=== PATIENT | male | born 1980 | race Caucasian/White ===

== ENCOUNTER 2023-07-18 11:12 | Outpatient (CLI) | payer OTHER, SELFPAY ==
--- NOTE | 2023-07-18 11:30 | US_ITS ---
Patient: NEREYDA MAGANA Facility:?[facility] Patient ID:?[id number] Site Patient ID:?[id number]. Site :?[id number] Study:?US-Testicle SCROTUM-07/18/2023 12:06:31 PM Ordering Physician:PASCALE WANG Final Report: INDICATION: Right testicle pain. COMPARISON: None. TECHNIQUE: Coronado scale imaging was performed of the scrotum. Color Doppler and spectral Doppler analysis was performed of the testes. FINDINGS: Testes: The right testis measures 4.1 x 2.5 x 2.8 cm and the left testis measures 4.0 x 2.2 x 2.7 cm. The testes demonstrate normal arterial and venous blood flow on color Doppler and spectral Doppler analysis. The testes have uniform echogenicity without evidence of a suspicious mass or area of inflammation. Epididymis: The epididymis is normal in appearance bilaterally. No hypervascularity. 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 Contralateral left hemiscrotal vessels are patent. Small right hydrocele. No significant varicocele. IMPRESSION: 1. 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 2. Small right hydrocele. 3. No evidence of torsion. Dictated by Nathaly Charles MD @ 07/18/2023 7:48:54 PM Signed by:?Nathaly Charles MD @07/18/2023 7:48:54 PM (Electronic Signature)
== END 2023-07-18 11:13 | disposition home or self-care (01) ==
PROVIDERS: PCP Family Medicine; Visit Provider Registered Nurse
DX: N50.811 Right testicular pain (principal); N43.3 Hydrocele, unspecified
CPT/HCPCS: 76870; 93976

== ENCOUNTER 2024-06-04 17:32 | Inpatient (IN) | payer OTHER, SELFPAY ==
--- OUTSIDE RECORDS SUMMARY | 2024-06-04 17:33 | XMS_ITS | Clinical Summary ---
Author Organization [employer] [facility] Address [place], [place] [address] Care Team Providers Care Linux Security Administrator Name Role Phone Paula Gomez MD Primary Care Provider Allergies No known active allergies Medications ibuprofen (ADVIL; MOTRIN) 600 mg tablet Take 600 mg by mouth three times daily. Maximum of 3200 mg in 24 hours. 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 FH: heart disease 07/14/2016 No active medical problems 04/16/2011 Immunizations Name Administration Dates Next Due COVID-19 vaccine (Moderna 100mcg/0.5mL) ROBBIE INGRAM 08/26/2020,07/31/2020 MMR 09/07/1993 Td (Age >=7 Years) 09/26/1996 Tdap 07/25/2023,04/16/2011 Family History Medical History Relation Name Comments Hyperlipidemia Brother 1 PJ Hypertension Brother 1 PJ Heart Disease Brother 2 Kev at ag e 24 or hypertrophic cardiomyopathy Valvular heart disease Brother 3 Emery No Known Problems Brother 4 Sascha Cancer Father lung of tan ng cancer at 59; smoker Heart Disease Father Lung cancer Father Stroke Father Transient ischemic attack Father Deep vein thrombosis Maternal Uncle Heart Disease Maternal Uncle Premature CHD (under age 60) Maternal Uncle Cancer-breast Mother Dementia Mother Diabetes Mother Hyperlipidemia Mother Hypertension Mother Postmenopausal breast cancer Mother Premature CHD (under age 60) Mother Cancer-colon Paternal Grandmother Hyperlipidemia Sister 1 Dagmar Hypertension Sister 1 Dagmar Coronary artery disease Sister 2 Rui Relation Name Status Comments Brother 1 PJ Alive Brother 2 Kev Brother 3 Emery Alive Brother 4 Sascha Alive Daughter 1 Alive Daughter 2 Alive Father Maternal Uncle Mother Paternal Grandmother Sister 1 Dagmar Alive Sister 2 [place] Alive Social History Tobacco Use Types Packs/Day Years Used Date Smoking Tobacco: Never Smokeless Tobacco: Never Tobacco Cessation:Counseling Given: Yes Alcohol Use Standard Drinks/Week Comments No 0 (1 standard drink = 0.6 oz pur e alcohol) [facility] Utilities Answer Date Recorded Do you have trouble paying f or utilities (for example, heat, electricity, water, phone)? Yes 07/25/2023 PHQ-2 Answer Date Recorded PHQ-2 TOTAL SCORE 0 07/25/2023 Social Connections Answer Date Recorded Do you often feel lonely or isolated from those around you? 0 07/25/2023 Financial Resource Strain Answer Date R ecorded Difficulty of Paying Living Expenses 3 07/25/2023 Difficulty of Paying Living Expenses Not on file 07/25/2023 Food Insecurity Answer Date Recorded Do you worry your food will run out before you are able to buy more? 1 07/25/2023 Transportation Needs Answer Date Record ed Does lack of transportation keep you from medica l appointments? 1 07/25/2023 Does lack of transportation keep you from work, meetings or getting things that you need? 1 07/25/2023 Housing Stability Answer Date Recorded What is your housing situation today? 1 07/25/2023 Sex and Gender Information Value Date Recorded Sex Assigned at Not on file Legal Sex Male 5:21 AM DRUG SAFETY DATA MANAGEMENT SPECIALIST Gender Identity Not on file Sexual Orientation Not on file Obstetrics History Last Filed Vital Signs Vital Sign Reading Time Taken Comments Blood Pressure 124/90 10/10/2023 7:58 AM CDT Pulse 61 10/10/2023 7:58 AM CDT Temperature 36.4 C (97.5 F) 08/10/2019 10:30 AM CDT Respiratory Rate 16 04/27/2017 9:41 PM DRUG SAFETY DATA MANAGEMENT SPECIALIST Oxygen Saturation 100% 10/10/2023 7:58 AM CDT Inhaled Oxygen Concentration - - Weight 89.6 kg (197 lb 8 oz) 10/10/2023 7:58 AM CDT Height 180.3 cm (5' 11) 07/25/2023 9:05 AM DRUG SAFETY DATA MANAGEMENT SPECIALIST Body Mass Index 27.55 07/25/2023 9:05 AM DRUG SAFETY DATA MANAGEMENT SPECIALIST Plan of Treatment Upcoming Encounters Date Type Department Care Team (Late st Contact Info) Description 06/06/2024 8:20 AM DRUG SAFETY DATA MANAGEMENT SPECIALIST Office Visit [facility] [address] [place] [address] Kali Phillips MD [address] [place] [address] Health Maintenance Due Date Last Done Comments COVID-19 vaccine series ( season) 2024 08/26/2020, 07/31/2020 Influenza for age 9-49 01/29/2024 BMI (ht and wt on same day) for age 18+ 07/25/2024 07/25/2023, 08/10/2019, 05/06/2017, Additional history exists Depression screening for age 12+ 07/25/2024 07/25/2023, 08/10/2019, 07/14/2016 Lipids for age 35-44 07/25/2028 07/25/2023, 07/14/2016, 04/16/2011 Tetanus booster 07/25/2033 07/25/2023, 03/30, 09/26/1996 HIV for age 15-65 Completed 07/25/2023 Hepatitis C screening for age 18-79 Completed 07/25/2023 Tdap Completed 07/25/2023, 04/16/2011 Pneumococcal series for age 6-49 Aged Out No longer eligible based on patient's age to complete this topic Procedures Procedure Name Priority Date/Time Associated Diagnosis Comments ANTI HIV 1/2 Routine 07/25/2023 10:01 AM DRUG SAFETY DATA MANAGEMENT SPECIALIST Screening for HIV (human immunodeficiency virus) ANTI HCV Routine 07/25/2023 10:01 AM DRUG SAFETY DATA MANAGEMENT SPECIALIST Need for hepatitis C screening test LIPID PANEL W REFLEX MEASURED LDL Routine 07/25/2023 10:01 AM DRUG SAFETY DATA MANAGEMENT SPECIALIST Lipid screening from Last 3 Months or Most Recently Relevant to Health Maintenance Results * (ABNORMAL) LIPID PANEL W REFLEX MEASURED LDL (07/25/2023 10:01 AM DRUG SAFETY DATA MANAGEMENT SPECIALIST) CHOLESTEROL,TOTAL 187 100 - 199 mg/dL 07/25/2023 4:16 PM DRUG SAFETY DATA MANAGEMENT SPECIALIST [facility] Comment: Cholesterol, Total Reference Ranges Desirable <200 mg/dL Borderline 200-239 mg/dL High >=240 mg/dL TRIGLYCERIDES 156(H) <150 mg/dL 07/25/2023 4:16 PM DRUG SAFETY DATA MANAGEMENT SPECIALIST [facility] HDL CHOLESTEROL 44 >40 mg/dL 4:16 PM [facility] NON-HDL CHOLESTEROL 143 <145 mg/dl 07/25/2023 4:16 PM DRUG SAFETY DATA MANAGEMENT SPECIALIST [facility] CHOL/HDL RATIO 4.25 <4.50 07/25/2023 4:16 PM [facility] LDL CHOLESTEROL 112 <=130 mg/dL 07/25/2023 4:16 PM [facility] VLDL CHOLESTEROL 31(H) <=30 mg/dL 07/25/2023 4:16 PM [facility] PROVIDER ORDERED STATUS RANDOM 07/25/2023 4:16 PM [facility] Blood BLOOD SPECIMEN / Unknown Venipuncture / Unknown 07/25/2023 10:01 AM DRUG SAFETY DATA MANAGEMENT SPECIALIST 07/25/2023 10:02 AM [facility] Paula Gomez MD CHEMISTRY Final R esult [facility] [address] [place] [address], * ANTI HCV (07/25/2023 10:01 AM DRUG SAFETY DATA MANAGEMENT SPECIALIST) HEPATITIS C ANTIBODY Non-Reacti ve Non-React julia 07/25/2023 3:13 PM DRUG SAFETY DATA MANAGEMENT SPECIALIST [facility] Comment:Please note, per www .CDC.gov: If a patient is known to be at high risk of HCV infection, or is symptomatic, and the physician's suspicion of HCV infection is high, HCV RNA testing is often employed and is of diagnostic value, even after an initial negative anti-HCV test result. Blood BLOOD SPECIMEN / Unknown Venipuncture / Unknown 07/25/2023 10:01 AM DRUG SAFETY DATA MANAGEMENT SPECIALIST 07/25/2023 10:02 AM DRUG SAFETY DATA MANAGEMENT SPECIALIST Paula Gomez MD SEND OUTS Final R esult Performing Organization Address City/[facility]/ZIP Co de Phone Number [facility] [address] [place] [id number], [place] * ANTI HIV 1/2 [15824.0] (07/25/2023 10:01 AM DRUG SAFETY DATA MANAGEMENT SPECIALIST) HIV-1/HIV-2 SCREEN Non-Reacti ve Non-Reacti ve 07/25/2023 3:14 PM DRUG SAFETY DATA MANAGEMENT SPECIALIST [facility] Comment:HIV-1 p24 and HIV-1/ HIV-2 Ab Not Detected. Blood BLOOD SPECIMEN / Unknown Venipuncture / Unknown 07/25/2023 10:01 AM DRUG SAFETY DATA MANAGEMENT SPECIALIST 07/25/2023 10:02 AM DRUG SAFETY DATA MANAGEMENT SPECIALIST Paula Gomez MD SEND OUTS Final R esult Performing Organization Address [facility] Co de Phone Number [facility] [address] [place] [id number], [place] from Last 3 Months or Most Recently Relevant to Health Maintenance Insurance [place] [employer] [place] [id number] [employer] Care Teams Linux Security Administrator Relationship Specialty Start Date End Date Paula Gomez MD [address] [place] [address] PCP - General Family Practice 06/28/23
[2024-06-04 18:05] VITALS: BP 131/83; PULSE 59; RESP 18; TEMP 36.6; O2SAT 100; BMI 25.8
--- NOTE | 2024-06-04 19:29 | ED_ITS ---
HPI - General Adult General Date Seen: 06/04/24 Chief complaint: Diabetic Related Problem Stated complaint: high blood sugar Time Seen by Provider: 06/04/24 19:27 History of Present Illness HPI narrative: 43 yo M who has no previous diagnosis of diabetes presents to the ER today for hyperglycemia. He says he has been feeling unwell since about 10 days ago on [place]. He has had blurry vision. He tested his blood sugar on his vfbbav-wf-sgn's glucose monitor and had several high readings. Blood sugar was 592 and then 581. Patient notes that since about May 25 he has had symptoms. Symptoms have included blurry vision (blurry to the point where he cannot see the hockey puck when skating) polyuria, polydipsia, and generalized fatigue. He is not having abdominal pain. No headache. No nausea or vomiting. Appetite been good. No history of diabetes but does have a couple of cousins with diabetes. He is not sure if there type 1 or type 2. No recent fever. No cough. Related Data Home Medications ?Medication ?Instructions ?Recorded ?Confirmed No Known Home Medications 07/18/23 07/18/23 Allergies Allergy/AdvReac Type Severity Reaction Status Date / Time No Known Drug Allergies Allergy Verified 07/18/23 08:58 [facility] Social History Smoking Status: Never smoker Do you use any of these nicotine containing products: None Non-prescribed substance use: denies use Exam Narrative: Exam Narrative: Constitutional: Appears well-developed and well-nourished. Alert. Conversant. Non toxic. HENT: Head: Atraumatic. Nose: Nose normal. Mouth/Throat: Oral mucosa is clear and moist. no trismus. Pharynx normal. Tonsils symmetric. No tonsillar enlargement, erythema, or exudate. Eyes: Conjunctivae normal. EOM normal. Pupils equal, round, and reactive to light. No scleral icterus. Neck: Normal range of motion. Neck supple. No tracheal deviation present. Cardiovascular: Normal rate, regular rhythm. No gallop. No friction rub. No murmur heard. Symmetric radial artery pulses Pulmonary/Chest: Effort normal. No stridor. No respiratory distress. No wheezes. No rales. No rhonchi . No tenderness. Abdominal: Soft. Bowel sounds normal. No distension. No mass. No tenderness. No rebound. No guarding. Musculoskeletal: RUE: Normal range of motion. No tenderness. No deformity LUE: Normal range of motion. No tenderness. No deformity RLE: Normal range of motion. No edema. No tenderness. No deformity LLE: Normal range of motion. No edema. No tenderness. No deformity Neurological: Alert and oriented to person, place, and time. Normal strength. CN II-VII intact. No sensory deficit. GCS eye subscore is 4. GCS verbal subscore is 5. GCS motor subscore is 6. Normal coordination Skin: Skin is warm and dry. No rash noted. No pallor. Normal capillary refill. Psychiatric: Normal mood. Normal affect. Const: Vital Signs, click to edit/add: Vital Signs - 24 hr 06/04/24 18:05 06/04/24 23:30 Temperature 97.9 F Pulse Rate [Pulse Oximeter] 59 L 76 Respiratory Rate 18 18 Blood Pressure [Ri ght Upper Arm] 131/83 117/77 Pulse Oximetry 100 98 Oxygen Delivery Me thod Room Air Room Air Course Vital Signs Vital signs: Initial Vital Signs Temperature 97.9 F 06/04/24 18:05 Temperature Source Temporal Artery Scan 06/04/24 18:05 Pulse Rate 59 L 06/04/24 18:05 Respiratory Rate 18 06/04/24 18:05 Blood Pressure 131/83 06/04/24 18:05 Blood Pressure Mean 99 06/04/24 18:05 Blood Pressure Position Sitting 06/04/24 18:05 Pulse Oximetry 100 06/04/24 18:05 Oxygen Delivery Method Room Air 06/04/24 18:05 Vital Signs Temperature 97.9 F 06/04/24 18:05 Pulse Rate 59 L 06/04/24 18:05 Respiratory Rate 18 06/04/24 18:05 Blood Pressure 131/83 06/04/24 18:05 Pulse Oximetry 100 06/04/24 18:05 Oxygen Delivery Method Room Air 06/04/24 18:05 Temperature 97.9 F 06/04/24 18:05 Pulse Rate 76 06/04/24 23:30 Respiratory Rate 18 06/04/24 23:30 Blood Pressure 117/77 06/04/24 23:30 Pulse Oximetry 98 06/04/24 23:30 Oxygen Delivery Method Room Air 06/04/24 23:30 Medications Administered Medications: Discontinued Medications Generic Name Dose Route Start Last Admin Trade Name Rupinder PRN Reason Stop Dose Admin Sodium Chloride 500 mls @ 500 mls/hr 06/04/24 19:48 06/04/24 23:47 0.9 % Sodium Chloride 500 Ml IV 06/04/24 20:47 Infused .Q1H ONE Infusion Insulin Human Regular 10 unit 06/04/24 22:10 06/04/24 22:13 Insulin Regular, Human 100 Unit/Ml Vial SUBCUT 06/04/24 22:11 10 unit ONCE ONE Administration Medical Decision Making MDM Narrative Medical decision making narrative: Very pleasant 43-year-old male presenting to the ER today with symptoms of diabetes (fatigue, polyuria, polydipsia, blurry vision) and elevated glucose readings. He has no previous history of diabetes. Labs here do confirm hyperglycemia. Fortunately his pH is normal, anion gap is normal. I do not see any evidence for diabetic ketoacidosis. Potassium and magnesium are normal. After discussion with our hospitalist, will start on subcu insulin rather than insulin drip for his hyperglycemia. Patient initiated with insulin 10 units subQ here in the ER. Will need q.1 hour glucose checks overnight to make sure his blood sugar comes down gradually and responds appropriately to the insulin. Patient will be admitted for management of his new onset diabetes with hyperglycemia. At this point he is neurologically intact, calm and conversant and is agreeable with the plan. Excepted by Dr. Stapleton at 9:51 p.m.. Lab Data Labs: Lab Results 06/04/24 06/04/24 Range/Units 19:58 20:37 WBC 6.57 (4.50-11.00) K/uL RBC 5.27 (4.30-5.90) m/uL Hgb 15.4 (13.5-17.5) gm/dL Hct 41.3 (37.0-53.0) % MCV 78 L (80-100) fL MCH 29 (26-34) pg MCHC 37 H (32-36) gm/dL RDW Coeff of True 10.9 L (11.5-15.5) % Plt Count 206 (140-440) K/uL Neut % (Auto) 57.2 (42.0-72.0) % Lymph % (Auto) 33.8 (20-44) % [place] % (Auto) 6.4 (0.0-11.0) % Eos % (Auto) 2.1 (0.0-7.0) % Baso % (Auto) 0.5 (0.0-3.0) % Neut # (Auto) 3.76 (1.7-7.0) K/uL Lymph # (Auto) 2.22 (0.90-2.90) K/uL [place] # (Auto) 0.40 (0.00-0.90) K/UL Eos # (Auto) 0.14 (0.00-0.50) K/uL Baso # (Auto) 0.03 (0.00-0.30) K/uL Abs Immat Gran (auto) 0.00 (0.00-0.30) K/uL Imm/Tot Granulo (auto) 0.0 % VBG pH 7.381 (7.32-7.43) VBG pCO2 50 (40-50) mmHG VBG pO2 < 30.1 (25-47) mmHG VBG HCO3 30 H (21-28) mmol/L Sodium 129 L (135-149) mmol/L Potassium 4.1 (3.6-5.1) mmol/L Chloride 92 L (96-114) mmol/L Carbon Dioxide 27 (20-32) mmol/L Anion Gap 10 (7-15) mEq/L BUN 22 (5-24) mg/dL Creatinine 0.9 (0.5-1.5) mg/dL Estimated Creat Clear 112.72 Estimated GFR 109 ml/min Glucose 401 H* (60-115) mg/dL Calcium 9.4 (8.4-10.6) mg/dL Magnesium 2.2 (1.5-2.6) mg/dL Urine Color Yellow (Yellow) Urine Appearance Clear (Clear) Urine pH 5.5 (5.0-8.5) Ur Specific Diablo 1.010 (1.000-1.030) Urine Protein Negative (Negative) Urine Glucose (UA) 3+ A (Negative) Urine Ketones 1+ A (Negative) Urine Blood Negative (Negative) Urine Nitrite Negative (Negative) Urine Bilirubin Negative (Negative) Urine Urobilinogen 0.2 (0.2-1.0) Ur Leukocyte Esterase Negative (Negative) Urine RBC 0-2 (0-2) Urine WBC 0-2 (0-5) Ur Squamous Epith Cells None (None-Few) Urine Bacteria None (None) Discharge Plan Discharge Clinical Impression: Acute hyperglycemia, Diabetes mellitus, new onset Patient Disposition: Admitted As Observation
--- OUTSIDE RECORDS SUMMARY | 2024-06-04 19:55 | XMS_ITS | Clinical Summary ---
Author Organization [employer] [facility] [employer] [facility] Address [place], [place] [address] Care Team Providers Care Rn Cvor Name Role Phone Paula Gomez MD Primary [...] Grandmother Sister 1 Dagmar Alive Sister 2 [place] Alive Social History Tobacco Use Types Packs/Day Years Used Date Smoking Tobacco: Never Smokeless Tobacco: Never Tobacco Cessation:Counseling Given: Yes Alcohol Use Standard Drinks/Week Comments No 0 (1 standard drink = 0.6 oz pur e alcohol) [facility] Utilities Answer Date Recorded Do you have [...] on file Legal Sex Male 5:21 AM STORE CLERK CASHIER Gender Identity Not on file Sexual Orientation Not on file Obstetrics History Last Filed Vital Signs Vital Sign Reading Time Taken Comments Blood Pressure 124/90 10/10/2023 7:58 AM CDT Pulse 61 10/10/2023 7:58 AM CDT Temperature 36.4 C (97.5 F) 08/10/2019 10:30 AM CDT Respiratory Rate 16 04/27/2017 9:41 PM STORE CLERK CASHIER Oxygen Saturation 100% 10/10/2023 7:58 AM CDT Inhaled Oxygen Concentration - - Weight 89.6 kg (197 lb 8 oz) 10/10/2023 7:58 AM CDT Height 180.3 cm (5' 11) 07/25/2023 9:05 AM STORE CLERK CASHIER Body Mass Index 27.55 07/25/2023 9:05 AM STORE CLERK CASHIER Plan of Treatment Upcoming Encounters Date Type Department Care Team (Late st Contact Info) Description 06/06/2024 8:20 AM STORE CLERK CASHIER Office Visit [facility] [address] [place] [address] Kali Phillips MD [address] [place] [address] Health Maintenance Due Date Last Done Comments [...] ANTI HIV 1/2 Routine 07/25/2023 10:01 AM STORE CLERK CASHIER Screening for HIV (human immunodeficiency virus) ANTI HCV Routine 07/25/2023 10:01 AM STORE CLERK CASHIER Need for hepatitis C screening test LIPID PANEL W REFLEX MEASURED LDL Routine 07/25/2023 10:01 AM STORE CLERK CASHIER Lipid screening from Last 3 Months or Most Recently Relevant to Health Maintenance Results * (ABNORMAL) LIPID PANEL W REFLEX MEASURED LDL (07/25/2023 10:01 AM STORE CLERK CASHIER) CHOLESTEROL,TOTAL 187 100 - 199 mg/dL 07/25/2023 4:16 PM STORE CLERK CASHIER [facility] Comment: Cholesterol, Total Reference Ranges Desirable <200 mg/dL Borderline 200-239 mg/dL High >=240 mg/dL TRIGLYCERIDES 156(H) <150 mg/dL 07/25/2023 4:16 PM STORE CLERK CASHIER [facility] HDL CHOLESTEROL 44 >40 mg/dL 4:16 PM [facility] NON-HDL CHOLESTEROL 143 <145 mg/dl 07/25/2023 4:16 PM STORE CLERK CASHIER [facility] CHOL/HDL RATIO 4.25 <4.50 07/25/2023 4:16 PM [facility] LDL CHOLESTEROL 112 <=130 mg/dL 07/25/2023 4:16 PM [facility] VLDL CHOLESTEROL 31(H) <=30 mg/dL 07/25/2023 4:16 PM [facility] PROVIDER ORDERED STATUS RANDOM 07/25/2023 4:16 PM [facility] Blood BLOOD SPECIMEN / Unknown Venipuncture / Unknown 07/25/2023 10:01 AM STORE CLERK CASHIER 07/25/2023 10:02 AM [facility] Paula Gomez MD CHEMISTRY Final R esult [facility] [address] [place] [address], * ANTI HCV (07/25/2023 10:01 AM STORE CLERK CASHIER) HEPATITIS C ANTIBODY Non-Reacti ve Non-React julia 07/25/2023 3:13 PM STORE CLERK CASHIER [facility] Comment:Please note, per www .CDC.gov: If a patient is known to be at high risk of HCV infection, or is symptomatic, and the physician's suspicion of HCV infection is high, HCV RNA testing is often employed and is of diagnostic value, even after an initial negative anti-HCV test result. Blood BLOOD SPECIMEN / Unknown Venipuncture / Unknown 07/25/2023 10:01 AM STORE CLERK CASHIER 07/25/2023 10:02 AM STORE CLERK CASHIER Paula Gomez MD SEND OUTS Final R esult Performing Organization Address City/[facility]/ZIP Co de Phone Number [facility] [address] [place] [phone], [place] * ANTI HIV 1/2 [28091.0] (07/25/2023 10:01 AM STORE CLERK CASHIER) HIV-1/HIV-2 SCREEN Non-Reacti ve Non-Reacti ve 07/25/2023 3:14 PM STORE CLERK CASHIER [facility] Comment:HIV-1 p24 and HIV-1/ HIV-2 Ab Not Detected. Blood BLOOD SPECIMEN / Unknown Venipuncture / Unknown 07/25/2023 10:01 AM STORE CLERK CASHIER 07/25/2023 10:02 AM STORE CLERK CASHIER Paula Gomez MD SEND OUTS Final R esult Performing Organization Address [facility] Co de Phone Number [facility] [address] [place] [address], [place] from Last 3 Months or Most Recently Relevant to Health Maintenance Insurance [place] [employer] [place] [id number] [employer] Care Teams Rn Cvor Relationship Specialty Start Date End Date Paula Gomze MD [address] [place] [address] PCP - General Family Practice 06/28/23
[2024-06-04 20:06] LABS: HCO3 VBG 30 mmol/L (21-28); PCO2 VBG 50 mmHG (40-50); PO2 VBG < 30.1 mmHG (25-47); pH VBG 7.381 (7.32-7.43)
[2024-06-04 20:25] LABS: Chloride* 92 mmol/L (96-114); Potassium* 4.1 mmol/L (3.6-5.1); Sodium* 129 mmol/L (135-149)
[2024-06-04 20:28] LABS: Anion Gap 10 mEq/L (7-15); Carbon Dioxide* 27 mmol/L (20-32); Creatinine* 0.9 mg/dL (0.5-1.5); Est. Creatinine Clearance* 112.72; Estimated Glomerular Filt Rate 109 ml/min
[2024-06-04 20:29] LABS: Blood Urea Nitrogen* 22 mg/dL (5-24); Calcium* 9.4 mg/dL (8.4-10.6); Magnesium* 2.2 mg/dL (1.5-2.6)
[2024-06-04 20:33] LABS: Basophils Absolute Auto 0.03 K/uL (0.00-0.30); Basophils Percent Auto 0.5 % (0.0-3.0); Eosinophils Absolute Auto 0.14 K/uL (0.00-0.50); Eosinophils Percent Auto 2.1 % (0.0-7.0); Hematocrit 41.3 % (37.0-53.0); Hemoglobin* 15.4 gm/dL (13.5-17.5); Lymphocytes Absolute Auto 2.22 K/uL (0.90-2.90); Lymphocytes Percent Auto 33.8 % (20-44); Mean Corpuscular HGB Conc 37 gm/dL (32-36); Mean Corpuscular Hemoglobin 29 pg (26-34); Mean Corpuscular Volume 78 fL (80-100); Monocytes Percent Auto 6.4 % (0.0-11.0); Neutrophils Absolute Auto 3.76 K/uL (1.7-7.0); Neutrophils Percent Auto 57.2 % (42.0-72.0); Platelet Count* 206 K/uL (140-440); RDW Coefficient of Variation % 10.9 % (11.5-15.5); Red Blood Count 5.27 m/uL (4.30-5.90); White Blood Count* 6.57 K/uL (4.50-11.00)
[2024-06-04 20:36] LABS: Glucose* 401 mg/dL (60-115)
[2024-06-04 20:37] LABS: Slide Review Reflex No
[2024-06-04 20:51] LABS: Appearance Urine Clear (Clear); Bilirubin Urine Negative (Negative); Blood Urine Negative (Negative); Color Urine Yellow (Yellow); Glucose Urine 3+ (Negative); Ketones Urine 1+ (Negative); Leukocyte Esterase Urine Negative (Negative); Nitrite Urine Negative (Negative); Protein Urine Negative (Negative); Urobilinogen Urine 0.2 (0.2-1.0); pH Urine 5.5 (5.0-8.5)
[2024-06-04 21:07] LABS: RBC Urine 0-2 (0-2); WBC Urine 0-2 (0-5)
[2024-06-04] MEDS: 0.9 % SODIUM CHLORIDE 500 ML 500 ML IV (21:07)
[2024-06-04] MEDS: INSULIN REGULAR, HUMAN 100 UNIT/ML VIAL 10 UNIT SUBCUT (22:13)
[2024-06-04 23:30] VITALS: BP 117/77; PULSE 76; RESP 18; O2SAT 98
[2024-06-05] VITALS (9 sets, daily range): BP systolic 118–133; BP diastolic 77–92; PULSE 51–67; RESP 16–20; TEMP 36.5–36.8; O2SAT 98–100; BMI 26.2
--- NOTE | 2024-06-05 00:50 | W.PM.THH&P_ITS ---
Telehealth- H&P: HPI History of Present Illness Date Seen: 06/05/24 Chief complaint: high blood sugar Narrative: Maurisio Madden is seen as an Interactive Telehealth visit. This is a 43-year-old male with no significant past medical history who presents to hospital blurry vision and weakness. 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 He was in his normal state of health up until May 26. At baseline he is a very active individual and eats healthy. He has not had any weight loss or weight gain. He noticed that on May 26 he was having increasing fatigue and difficulty with his vision. He is a very active individual and plays ice hockey. 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 He noticed that he was having difficult with seeing the park until open by his feet in the crease. Otherwise he was having polyuria polydipsia over the past 9 days. Prior to that he felt completely normal. 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 He is active. He runs between 2 to 8 miles at a time per week. He denies any chest pain shortness of breath. He denies any lower extremity swelling. He denies any nausea vomiting or diarrhea. He denies any recent flulike illness. Review of Systems Status of ROS: Reports: 10 or more systems reviewed and unremarkable except as noted in History and below Const: Reports: change in weight, fatigue and malaise Eyes: Reports: change in vision ENMT: Denies: neck pain Cardio: Denies: chest pain, palpitations, edema or shortness of breath with exertion Resp: Denies: shortness of breath GI: Reports: nausea Musculo: Denies: back pain, neck pain, extremity pain or extremity swelling Neuro: Reports: headache, weakness in extremities, dizziness and confusion; Denies: numbness in extremities or slurred speech Psych: Denies: anxiety Endo: Reports: excessive urination, excessive thirst and fatigue PFSH PFSH Social History Smoking Status: Never smoker Do you use any of these nicotine containing products: None Non-prescribed substance use: denies use Meds Home Medications and Allergies Home Medications ?Medication ?Instructions ?Recorded ?Confirmed ?Type No Known Home Medications 07/18/23 07/18/23 History Allergies Allergy/AdvReac Type Severity Reaction Status Date / Time No Known Drug Allergies Allergy Verified 07/18/23 08:58 Exam Narrative Exam Narrative: Physical Exam GENERAL: ?vital signs reviewed, well developed and nourished, in no distress HEENT: pupils are equal round and reactive to light, extraocular movements are grossly within normal limits and oral mucosa is moist. NECK: Supple without lymphadenopathy or thyromegaly according to nursing staff examination observation HEART: Regular rate and rhythm without any rubs, murmurs, or gallops. LUNGS: Clear to auscultation bilaterally with good air movement throughout ABDOMEN: Observation from nurse assisted exam, abdomen appears soft, nontender, and nondistended with Positive bowel sounds noted. EXTREMITIES: Strength and sensation is observed to be grossly within normal limits in the upper and lower extremities.? No focal strength deficit is observed. SKIN:? Observed warm and dry with color normal Const Vital Signs, click to edit/add: Vital Signs - 24 hr 06/04/24 18:05 06/04/24 23:30 Temperature 97.9 F Pulse Rate [Pulse Oximeter] 59 L 76 Respiratory Rate 18 18 Blood Pressure [Right Upper Arm] 131/83 117/77 Pulse Oximetry 100 98 Oxygen Delivery Method Room Air Room Air Common normals: no apparent distress Hospitalist - H&P: Result Labs Labs: Short CBC 06/04/24 Range/Units 19:58 WBC 6.57 (4.50-11.00) K/uL Hgb 15.4 (13.5-17.5) gm/dL Hct 41.3 (37.0-53.0) % Plt Count 206 (140-440) K/uL BMP 06/04/24 19:58 Sodium 129 L Potassium 4.1 Chloride 92 L Carbon Dioxide 27 BUN 22 Creatinine 0.9 Glucose 401 H* Calcium 9.4 Urine 06/04/24 Range/Units 20:37 Urine Color Yellow (Yellow) Urine Appearance Clear (Clear) Urine pH 5.5 (5.0-8.5) Ur Specific [place] 1.010 (1.000-1.030) Urine Protein Negative (Negative) Urine Glucose (UA) 3+ A (Negative) Assessment and Plan Assessment and plan (1) Diabetes mellitus, new onset: Status: Acute (2) Acute hyperglycemia: Status: Acute Plan This is a 43-year-old male who has a new diagnosis of diabetes. When the patient presented to the emergency room his blood sugar was greater than 400. He was also noted to have low sodium but this was associated with pseudohyponatremia. He was administered insulin and his blood sugars immediately came down. When the patient was initially admitted, he was complaining of vision loss in the weakness. The purpose of admission to this hospital is for IV fluid resuscitation and checking blood sugars. I am hesitant about starting him on long-acting as his blood sugars have come down nicely. I will check an A1c. If his A1c is markedly elevated that he may benefit from oral hypoglycemics given the possibility of him being a type II diabetic. I will have a diabetic education centimeters in the morning. Telehealth Visit Today's History and Physical is provided via interactive telehealth by Dr. Marvel Alvarez MD. Patient is located at [facility]. Provider is located at [facility]. Nursing staff assisted with the patient's examination. The visit being done today meets criteria for a telehealth visit and the patient or patient's parent and/or gaurdian is aware the visit is a telehealth visit. Camera Start Time 1:00 AM Camera End Time 1:30 AM Telehealth: Statement Statement Telehealth Visit: Today's History and Physical is provided via interactive telehealth by Marvel Alvarez MD.? Patient is located at [facility].? Provider is located at [facility].? Nursing staff assisted with the patient's exam. The visit being done today meets criteria for a telehealth visit and the patient or patient?s parent/guardian is aware the visit is a telehealth visit.
[2024-06-05] MEDS: 0.9 % SODIUM CHLORIDE 1000 ml 1,000 ML 125 ML IV (01:34)
[2024-06-05 07:22] LABS: Chloride* 101 mmol/L (96-114); Potassium* 3.5 mmol/L (3.6-5.1); Sodium* 134 mmol/L (135-149)
[2024-06-05 07:25] LABS: Alanine Aminotransferase* 29 U/L (4-50); Alkaline Phosphatase* 57 U/L (40-150); Anion Gap 6 mEq/L (7-15); Aspartate Amino Transferase* 36 U/L (12-35); Bilirubin Total* 1.1 mg/dL (0.1-1.5); Blood Urea Nitrogen* 18 mg/dL (5-24); Carbon Dioxide* 27 mmol/L (20-32); Creatinine* 0.9 mg/dL (0.5-1.5); Est. Creatinine Clearance* 112.72; Estimated Glomerular Filt Rate 109 ml/min; Glucose* 128 mg/dL (60-115); Total Protein* 6.3 g/dL (6.0-8.3)
[2024-06-05 07:26] LABS: Calcium* 8.4 mg/dL (8.4-10.6)
[2024-06-05 07:54] LABS: Hemoglobin A1C* 9.4 % (0-5.6)
[2024-06-05] MEDS: ONDANSETRON 2 MG/ML inj 4 MG IVP (08:28)
[2024-06-05] MEDS: ACETAMINOPHEN 325 MG TABLET 650 MG PO ×3 (08:28→20:33)
[2024-06-05] MEDS: SODIUM CHLORIDE 0.9 % (FLUSH) 10 ML SYRINGE 5 ML IVF ×2 (08:29→20:35)
[2024-06-05] MEDS: INSULIN GLARGINE,HUM.REC.ANLOG 100 UNIT/ML INSULN.PEN 10 UNIT SUBCUT ×2 (09:00→12:21)
[2024-06-05] MEDS: INSULIN ASPART 100 UNIT/ML SUBCUT ×3 (11:32→17:25)
--- NOTE | 2024-06-05 17:22 | W.PM.CROSSCO ---
Subjective Subjective Date Seen: 06/05/24 Principal diagnosis: Hyperglycemia, probable new onset type 1 diabetes Interval history: Maurisio Madden is seen as an Interactive Telehealth visit. This is a 43-year-old male with no significant past medical history who presents to hospital blurry vision and weakness. 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 He was in his normal state of health up until May 26. At baseline he is a very active individual and eats healthy. He has not had any weight loss or weight gain. He noticed that on May 26 he was having increasing fatigue and difficulty with his vision. He is a very active individual and plays ice hockey. 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 He noticed that he was having difficult with seeing the park until open by his feet in the crease. Otherwise he was having polyuria polydipsia over the past 9 days. He reports unusual fatigue. He has been urinating large amounts and is always thirsty. Prior to that he felt completely normal. Strong family history of diabetes type 1 and 2 on his mother side of the family. No other recent illness except as above Objective Objective Data Details: He is alert and appears in no distress. Breathing is unlabored. He is oriented to his circumstances. Reports his vision is improved today. No significant edema. Assessment and Plan Assessment and plan (1) New onset type 1 diabetes mellitus, uncontrolled: Status: Acute Plan I think it is more likely that the patient has type 1 than type 2. Initiate basal- bolus insulin regimen. Teach the patient glucose monitoring, insulin management and dietary management. Will make arrangements for close outpatient follow-up. Total Time Spent Total Time Spent: Total time spent today is 55 minutes in coordination of care and discussing with patient diagnosis of diabetes and treatment of diabetes type 1 and ranging ongoing care coordination.
[2024-06-05] MEDS: INSULIN ASPART 100 UNIT/ML 7 UNIT SUBCUT (17:24)
[2024-06-05] MEDS: ENOXAPARIN 40 MG/0.4 ML INJ SUBCUT (20:37)
[2024-06-05] MEDS: INSULIN GLARGINE,HUM.REC.ANLOG 100 UNIT/ML INSULN.PEN 20 UNIT SUBCUT (20:38)
[2024-06-06] MEDS: IBUPROFEN 400 MG TABLET PO ×3 (01:58→13:43)
[2024-06-06 02:49] VITALS: BP 113/60; PULSE 56; RESP 16; TEMP 36.2; O2SAT 97
[2024-06-06 07:00] VITALS: BP 122/78; PULSE 56; RESP 16; TEMP 36.4; O2SAT 100
--- NOTE | 2024-06-06 07:00 | PC.NURSE ---
End of shift report [id number]: Alert and oriented x 4. Reporting headache from right above the eyes, tylenol not effective for discomfort. Updated MD with pain and new order for prn ibuprofen, patient resting comfortably after administrations. 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 Patient able to verbalize back teaching, family bedside and education provided with support system. Independent with ambulation and transfers.
[2024-06-06] MEDS: ONDANSETRON 2 MG/ML inj 4 MG IVP (08:16)
[2024-06-06] MEDS: SODIUM CHLORIDE 0.9 % (FLUSH) 10 ML SYRINGE 5 ML IVF (08:19)
[2024-06-06 11:40] VITALS: BP 122/78; PULSE 62; RESP 16; TEMP 36.5; O2SAT 100
[2024-06-06] MEDS: INSULIN ASPART 100 UNIT/ML 7 UNIT SUBCUT (11:43)
[2024-06-06] MEDS: INSULIN ASPART 100 UNIT/ML SUBCUT (11:43)
[2024-06-06] MEDS: ACETAMINOPHEN 325 MG TABLET 650 MG PO (11:51)
--- NOTE | 2024-06-06 14:48 | PC.NURSE ---
Nursing discharge note: Pt has been A&O, afebrile and VSS day of discharge. He is independent with ambulation with a steady gait. Has ongoing c/o blurred vision in right eye along with right frontal headache. Provided ice pack and alternated between ibuprofen & Tylenol with adequate relief. Blood sugars today were 61 > 298 > 289. See eMAR for insulin administration. Education provided with blood sugar checks and insulin administration with patient providing teach back and demonstration each time. Pt reported having nausea throughout the day relating to headaches but tolerating PO intake. PRN Zofran given x1 @0815. Pt had adequate fluid intake as well as urine output today. No BM reported. PIV in left AC was removed, catheter intact. Discharge instructions were reviewed with patient and his who both verbalized understanding. Dr. Hector provided a written handout for patient explaining sliding scale insulin and how many units to give based off his blood sugar levels. Pt discharged via ambulatory @ 1415 accompanied by his .
--- NOTE | 2024-06-06 16:13 | PM.DS1 ---
DS: Providers Provider Date Seen: 06/06/24 Date of admission: 06/05/24 14:46 Primary care physician: Paula Gomez MD Admitting Clinician: Marvel Alvarez MD Attending Physician on discharge: Inocencio Hector MD Date of Discharge: 06/06/24 DS: Diagnosis Discharge Diagnosis (1) Diabetes mellitus, new onset: Status: Acute DS: Summary Hospital Course Hospital Course: Maurisio Madden is seen as an Interactive Telehealth visit. This is a 43-year-old male with no significant past medical history who presents to hospital blurry vision and weakness. 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 He was in his normal state of health up until May 26. At baseline he is a very active individual and eats healthy. He has not had any weight loss or weight gain. He noticed that on May 26 he was having increasing fatigue and difficulty with his vision. He is a very active individual and plays ice hockey. 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 He noticed that he was having difficult with seeing the park until open by his feet in the crease. Otherwise he was having polyuria polydipsia over the past 9 days. He reports unusual fatigue. He has been urinating large amounts and is always thirsty. Prior to that he felt completely normal. Strong family history of diabetes type 1 and 2 on his mother side of the family. No other recent illness except as above Patient was felt to be and adult onset type 1 diabetic. He presented with ketones in his urine, polydipsia, polyuria and blurry vision. He was treated with insulin and had relatively rapid improvement in his blood sugar. At this time he is being treated with insulin glargine 15 units at bedtime for basal insulin and NovoLog 5 units plus corrective insulin with each meal. He has arranged follow-up with Diabetes Education and endocrinology in the next week. Gave him a plan to deal with hypo and hyperglycemia and Education about type 1 diabetes. Status at Discharge Functional status at discharge: independent ambulation Overall status at discharge: patient is progressing back to baseline Time Spent with Patient Time attestation: Total time spent providing and/or coordinating discharge services: 45 minutes Exam Narrative: Exam Narrative: He is alert and appears in no distress. Speech is normal. Breathing is unlabored. Cardiovascular: S1, S2, regular rate and rhythm Const: Vital Signs, click to edit/add: Vital Signs - 24 hr 06/05/24 19:00 06/05/24 23:00 06/05/24 23:00 Temperature 98.0 F 97.7 F Pulse Rate [Pulse Oximeter] 64 56 L 56 L Respiratory Rate 18 16 16 Blood Pressure [Ri ght Arm] 131/88 122/77 Pulse Oximetry 100 98 Oxygen Delivery Me thod Room Air Room Air 06/06/24 02:49 06/06/24 07:00 06/06/24 07:00 Temperature 97.1 F L 97.6 F Pulse Rate [Pulse Oximeter] 56 L 56 L 56 L Respiratory Rate 16 16 16 Blood Pressure [Ri ght Arm] 113/60 122/78 Pulse Oximetry 97 100 Oxygen Delivery Me thod Room Air Room Air 06/06/24 11:40 Temperature 97.7 F Pulse Rate [Pulse Oximeter] 62 Respiratory Rate 16 Blood Pressure [Ri ght Arm] 122/78 Pulse Oximetry 100 Oxygen Delivery Me thod Room Air Documenting provider has reviewed patient's vital signs: yes Discharge Plan Discharge Disposition: Home, Self-Care Date of Admission: 06/05/24 14:46 Attending Provider on Discharge: Inocencio Hector Primary Care Provider: Paula Gomez Condition: Improved Anticipated Discharge Date/Time: 06/05/24 19:00 Discharge Medications: New insulin glargine [Lantus Solostar U-100 Insulin] 100 unit/mL (3 mL) insulin pen 15 unit subcut QPM Qty: 9 3RF insulin aspart U-100 [Novolog FlexPen U-100 Insulin] 100 unit/mL (3 mL) insulin pen 5 unit subcut TID Qty: 13.5 3RF No Action No Known Home Medications Discharge Orders: Discharge Order (Routine); Ordered 06/06/24 Ordered By: Inocencio Hector Patient Education: Insulin Aspart, Recombinant (By injection) (Novolog, Novolog..., Insulin Glargine (By injection) (Lantus, Lantus SoloStar, Toujeo, Semglee), Type 1 Diabetes in Adults: New Diagnosis (DC), What is Insulin (GEN) Activity Level: No Restrictions Discharge Diet: Diabetic Follow Up Appointments: [facility] [Provider Group] - 06/12/24 2:00 pm (First appointment is [facility] in [place]. [facility] in [place] for new type [address] Lauren Jun 15, 2024 @2:00pm.) Paula Gomez MD [Primary Care Provider] - Forms: Work/School Release, [facility] Inst[facility]
[2024-06-09 17:35] LABS: Insulin Antibody 4.7 U/mL (0.0-0.4)
== END 2024-06-06 14:15 | disposition home or self-care (01) | DRG 639 ==
LOC: ED 21:54 → MEDSURG 06-05 00:28
PROVIDERS: Admitting Provider Student in an Organized Health Care Education/Training Program; Emergency Provider Emergency Medicine; PCP Family Medicine; Visit Provider Family Medicine
DX: E10.65 Type 1 diabetes mellitus with hyperglycemia (principal)
CPT/HCPCS: 36415; 80048; 80053; 81001; 82803; 82962; 83036; 83735; 84443; 85025; 86337; 86341; 99284; 99285; G0378; A9270; J1650; J1815; J2405; J7030